=== PATIENT | female | born 1975 | race Caucasian/White ===

== ENCOUNTER 2021-01-26 12:47 | Outpatient (CLI) | payer BC, SELFPAY ==
--- NOTE | 2021-01-26 12:58 | MM_ITS ---
WS: [id number] BILATERAL DIGITAL SCREENING MAMMOGRAPHY WITH CAD CLINICAL INFORMATION: SCREENING HISTORY: Screening mammogram. No current complaints. COMPARISON: TECHNIQUE: Bilateral CC and MLO views. FINDINGS: Bilateral breast implants. Implants appear mammographically intact. Scattered fibroglandular densities bilaterally. No suspicious focal mass, asymmetry, calcifications, or architectural distortion. No evidence of malignancy. MM/[place] [id number] IMPRESSION: BI-RADS: 2-Benign FOLLOW UP: 1 Year Follow-up Recommend return to annual screening mammography.
== END 2021-01-26 12:48 | disposition home or self-care (01) ==
LOC: RADSHAW 12:52
PROVIDERS: PCP Nurse Practitioner Family; Visit Provider Nurse Practitioner Family
DX: Z12.31 Encounter for screening mammogram for malignant neoplasm of breast (principal)
CPT/HCPCS: 77067

== ENCOUNTER 2024-10-31 05:04 | Emergency (ER) | payer BC, SELFPAY ==
--- NOTE | 2024-10-31 05:08 | XRR_ITS ---
PROCEDURE INFORMATION: Exam: XR Right Ankle Exam date and time: 10/31/2024 5:21 AM Age: 48 years old Clinical indication: Injury or trauma; Fall; Blunt trauma; Ankle; Right; Additional info: Fall, pain and swelling TECHNIQUE: Imaging protocol: Radiologic exam of the right ankle. Views: 3 or more views. COMPARISON: No relevant prior studies available. FINDINGS: Bones/joints: Lateral soft tissue swelling. Slightly displaced fracture of the distal fibula. Mild calcaneal spurring. Soft tissues: Normal. XR/XR ankle RT min 3V* [id number] IMPRESSION: Fracture of the distal fibula.
[2024-10-31 05:10] VITALS: BP 108/62; PULSE 66; RESP 18; TEMP 36.2; O2SAT 94; BMI 30.4
--- NOTE | 2024-10-31 05:17 | ED_ITS ---
HPI - Trauma General: Chief Complaint: Trauma Stated Complaint: FALL, RIGHT ANKLE INJURY Time Seen by Provider: 10/31/24 05:07 History of Present Illness: 48-year-old female presents emergency ro om by ambulance with right ankle pain. She stepped in a hole in her yard. She has some swelling on the lateral malleolus. Neurovascularly intact. No obvious deformities. No other injuries. No head injury. No chest pain. No loss of consciousness. No altered mental status. No abdominal pain. No nausea or vomiting. Related Data Home Medications ?Medication ?Instructions ?Recorded ?Confirmed cetirizine 10 mg tablet (Zyrtec) 10 mg PO DAILY PRN 10/03/24 cholecalciferol (vitamin D3) 50 50 mcg PO DAILY 10/03/24 mcg (2,000 unit) capsule ferrous sulfate 325 mg (65 mg 65 mg PO DAILY 06/02/21 10/03/24 iron) tablet vitamin B complex-folic acid 0.4 1 tab PO DAILY 10/03/24 mg tablet (Super B Maxi Complex) one a day women's petite PO DAILY 08/08/21 10/03/24 multivitamin Lactobacillus cap PO DAILY 09/19/21 acidophilus-Bifidobac.animalis 2 billion cell capsule (One-A-Day Trubiotics) calcium fructoborate 216 mg tablet mg PO DAILY 2 10/03/24 (Move Free Ultra Faster Comfort) cranberry 500 mg capsule 4,200 mg PO DAILY 09/19/21 0 10/03/24 lysine 500 mg tablet 500 mg PO .Weekly 07/05/23 0 10/03/24 Previous Rx's ?Medication ?Instructions ?Recorded desvenlafaxine succinate 100 mg 200 mg (2 x 100 mg) PO DAILY #180 05/02/24 tablet,extended release 24 hr tabs (Pristiq) hydrocodone 5 mg-acetaminophen 325 1 tab PO Q6H PRN pa in #20 tabs 10/31/24 mg tablet polyethylene glycol 3350 17 17 g PO DAILY #510 grams 0 10/31/24 gram/dose oral powder (Miralax) Allergies Allergy/AdvReac Type Severity Reaction Status Date / Time acetaminophen (From Tylenol) Allergy Mild breaks me Verified 10/03/24 15:42 out in rash Review of Systems Narrative: Constitutional symptoms: Negative except as documented in HPI. Skin symptoms: Negative except as documented in HPI. Eye symptoms: Negative except as documented in HPI. ENMT symptoms: Negative except as documented in HPI. Respiratory symptoms: Negative except as documented in HPI. Cardiovascular symptoms: Negative except as documented in HPI. Gastrointestinal symptoms: Negative except as documented in HPI. Genitourinary symptoms: Negative except as documented in HPI. Musculoskeletal symptoms: Negative except as documented in HPI. Neurologic symptoms: Negative except as documented in HPI. Psychiatric symptoms: Negative except as documented in HPI. Endocrine symptoms: Negative except as documented in HPI. [facility] PFSH: Medical History (Updated 10/31/24 @ 05:34 by Kalyn Olivares MD) Psychiatric care Social History Smoking and tobacco/nicotine status: current every day tobacco/nicotine user cigarettes Packs smoked per day: 1.5 Years cigarettes smoked: 31 Quit status (tobacco/nicotine): has tried quititng Number of times tried to quit tobacco: 3 Second hand smoke exposure: Yes Physical Exam Narrative: EXAM NARRATIVE: General: Alert, no acute distress. Skin: warm and dry Head: Normocephalic Neck: Trachea midline Eye: Extraocular movements are intact. Ears, nose, mouth and throat: Oral mucosa moist Respiratory: Respirations are non-labored Musculoskeletal: Swelling over the lateral malleolus of the right ankle. Neurovascular intact. No obvious deformities. Pain with movement. Gastrointestinal: Abdomen does not appear distended Neurological: Alert and oriented, No focal neurological deficit observed. Psychiatric: Cooperative, appropriate mood & affect. Course Vital Signs: Vital signs: Vital Signs Temperature 97.2 F L 10/31/24 05:10 Pulse Rate 66 10/31/24 05:10 Respiratory Rate 18 10/31/24 05:10 Blood Pressure 108/62 10/31/24 05:10 Pulse Oximetry 94 10/31/24 05:10 [facility] - Trauma Medical Decision Making X-ray of the right ankle: Mildly displaced distal fibular fracture. This was reviewed and interpreted by myself the emergency room physician. I also reviewed the radiology report. Assessment and plan: Ankle fracture ?Crutches and splint - Discharged home - Discussed plan with patient. Answered any questions. - Evaluation and treatment of this problem were appropriate in the emergency setting. All radiology interpretation(s) finalized by discharge Discharge Plan Discharge Patient Disposition: Home Clinical Impression: Ankle fracture Condition: Stable Prescriptions: New hydrocodone-acetaminophen 5-325 mg tablet 1 tab PO Q6H PRN (Reason: pain) Qty: 20 0RF polyethylene glycol 3350 [Miralax] 17 gram/dose powder 17 g PO DAILY Qty: 510 0RF Rx Instructions: Take 1 scoop daily while taking pain medications. No Action one a day women's petite multivitamin PO DAILY ferrous sulfate 325 mg (65 mg iron) tablet 65 mg PO DAILY vitamin B complex-folic acid [Super B Maxi Complex] 0.4 mg tablet 1 tab PO DAILY cetirizine [Zyrtec] 10 mg tablet 10 mg PO DAILY PRN cholecalciferol (vitamin D3) 50 mcg (2,000 unit) capsule 50 mcg PO DAILY Move Free Ultra Faster Comfort 216 mg tablet PO DAILY cranberry 500 mg capsule 4,200 mg PO DAILY Rx Instructions: administer with meals One-A-Day Trubiotics 2 billion cell capsule PO DAILY desvenlafaxine succinate [Pristiq] 100 mg tablet extended release 24 hr 200 mg PO DAILY Qty: 180 3RF lysine 500 mg tablet 500 mg PO .Weekly Discharge Orders: Discharge ED (Routine); Ordered 10/31/24 Ordered By: Kalyn Olivares Referrals: Keith Messer DO [Physician, Orthopedics] - 4-7 days Referral Note: Please call for an appointment Enid Padilla NP [Primary Care Provider, Family Practice] Discharge Activity: Limit activity as instructed Patient Instructions: Crutch Instructions (ED), Opioid Safety, Pain Management Activity Restrictions/Additional Instructions: Thank you for choosing [facility] for your healthcare needs today. You have been screened and evaluated and felt safe for discharge. Health conditions do change or evolve sometimes and as such it is important that you follow up with your Primary Doctor to be re checked, 3-5 days is a general good time frame for follow up. You are always welcome to return to the ED for re assessment if your symptoms are worsening or you have new concerns Print Language: Citizen Of [place] Coding Level of Care Code ED Obstetrician Gynecologist for Gene Reeves
[2024-10-31 06:07] VITALS: RESP 20
[2024-10-31] MEDS: morphine 4 mg/mL SDV 1 mL IM (06:07)
[2024-10-31] MEDS: ondansetron 2 mg/ML SDV 2 mL 4 MG IM (06:08)
[2024-10-31 06:55] VITALS: BP 112/76; PULSE 65; RESP 16; O2SAT 99
== END 2024-10-31 06:56 | disposition home or self-care (01) ==
PROVIDERS: Emergency Provider Emergency Medicine; PCP Nurse Practitioner Family
DX: S82.831A Other fracture of upper and lower end of right fibula, initial encounter for closed fracture (principal); F17.210 Nicotine dependence, cigarettes, uncomplicated; X58.XXXA Exposure to other specified factors, initial encounter
CPT/HCPCS: 29505; 73610; 96372; 99284; J2270; J2405

== ENCOUNTER 2024-11-03 15:15 | Outpatient (CLI) | payer BC, SELFPAY | END 2024-11-03 15:16 | disposition home or self-care (01) | LOC: SPT 11-04 08:48 | PROVIDERS: PCP Nurse Practitioner Family; Visit Provider Podiatrist Foot & Ankle Surgery | DX: Z46.89 Encounter for fitting and adjustment of other specified devices (principal); S82.831D Other fracture of upper and lower end of right fibula, subsequent encounter for closed fracture with routine healing; X58.XXXD Exposure to other specified factors, subsequent encounter | CPT/HCPCS: L4361 ==

== ENCOUNTER → 2024-11-17 13:29 | Outpatient (BNVA) | payer BC, SELFPAY | PROVIDERS: PCP Nurse Practitioner Family; Visit Provider Podiatrist Foot & Ankle Surgery | DX: S82.831D Other fracture of upper and lower end of right fibula, subsequent encounter for closed fracture with routine healing (principal); W19.XXXD Unspecified fall, subsequent encounter | CPT/HCPCS: 73610 ==

== ENCOUNTER → 2024-12-08 14:35 | Outpatient (BNVA) | payer BC, SELFPAY | PROVIDERS: PCP Nurse Practitioner Family; Visit Provider Podiatrist Foot & Ankle Surgery | DX: S82.831G Other fracture of upper and lower end of right fibula, subsequent encounter for closed fracture with delayed healing (principal); W19.XXXD Unspecified fall, subsequent encounter | CPT/HCPCS: 73610 ==

== ENCOUNTER → 2024-12-23 07:52 | Outpatient (BNVA) | payer BC, SELFPAY | PROVIDERS: PCP Nurse Practitioner Family; Visit Provider Podiatrist Foot & Ankle Surgery | DX: S82.831G Other fracture of upper and lower end of right fibula, subsequent encounter for closed fracture with delayed healing (principal); W19.XXXD Unspecified fall, subsequent encounter | CPT/HCPCS: 73610 ==

== ENCOUNTER 2025-01-02 08:14 | Day surgery (SDC) | payer BC, SELFPAY ==
[2025-01-02] VITALS (11 sets, daily range): BP systolic 90–130; BP diastolic 41–72; PULSE 57–83; RESP 14–19; TEMP 36.2–36.3; O2SAT 93–100; BMI 33.4
--- NOTE | 2025-01-02 | XR_ITS ---
WS: [id number] Right ankle, C-arm fluoroscopy views, 01/02/2025 Clinical Data: KD PICS Comparison: Right ankle, 12/23/2024 Findings: Dr. Obrien reduce the distal right fibular fracture with an orthopedic plate and screws. XR/XR ankle RT min 3V* [id number] Impression: Internal fixation of distal right fibular fracture.
--- NOTE | 2025-01-02 09:27 | W.PM.OPSUD ---
Surgery/Procedure H&P Update DATE OF PROCEDURE: January 02, 2025 DATE H&P PERFORMED: 12/23/24 H&P UPDATE INFORMATION: I have reviewed H&P completed within last 30 days, I have examined patient prior to procedure, No changes to prior documentation and Risks and benefits of the procedure reviewed PREOP DIAGNOSIS: Right distal fibular fracture PLANNED PROCEDURE: Operation Date: 01/02/25 09:50 Proposed Procedures p ORIF Ankle ORIF Distal Fibula delayed healing, subsequent encounter(Right) - Santi Obrien DPM
--- NOTE | 2025-01-02 09:37 | PC.NURSE ---
Dr Tomlinson administered Ropivacaine 0.5% 30 mls and Decadron 4 mg into the right popliteal space. Pt tolerated well.
--- NOTE | 2025-01-02 09:43 | ANES.PREANE2 ---
Pre-Anesthetic Assessment Height/Weight: Height 1.73 m Weight 99.79 kg Temp Pulse Resp BP Pulse Ox O2 Del Method 97.3 F L 83 18 96/72 95 Room Air 01/02/25 08:32 01/02/25 08:32 01/02/25 08:32 01/02/25 08:32 01/02/25 08:32 01/02/25 08:32 Preop Diagnosis: Right distal fibular fracture Operation Date: 01/02/25 09:50 Proposed Procedures p ORIF Ankle ORIF Distal Fibula delayed healing, subsequent encounter(Right) - Santi Obrien DPM Familial anesthetic complications: None Was Beta Luis taken within 24 hours: N/A Was Clonidine taken within 24 hours: N/A Last intake: Intake Last Liquid Date 01/01/25 Last Liquid Time 22:00 Last Solid Date 01/01/25 Last Solid Time 19:00 Social No alcohol and No tobacco Exam alert, oriented x 3, clear to auscultation bilaterally and regular rate & rhythm Airway Mallampati: Class II Dentition: false Anesthetic Plan ASA status: 2 Anesthesia: General and Regional (specify below) Risk of > 500 ml blood loss (7ml/kg in children): No Medications/Allergies Home Medications ?Medication ?Instructions ?Recorded ?Confirmed ?Last Taken ?Type cetirizine 10 mg tablet (Zyrtec) 10 mg PO DAILY PRN Allergy Symptoms 06/02/21 01/01/25 01/01/25 06:00 History cholecalciferol (vitamin D3) 50 50 mcg PO DAILY 06/02/21 01/01/25 01/01/25 06:00 History mcg (2,000 unit) capsule ferrous sulfate 325 mg (65 mg 65 mg PO DAILY 06/02/21 01/01/25 01/01/25 06:00 History iron) tablet vitamin B complex-folic acid 0.4 1 tab PO DAILY 06/02/21 01/01/25 01/01/25 06:00 History mg tablet (Super B Maxi Complex) one a day women's petite 1 tab PO DAILY 08/08/21 01/01/25 01/01/25 06:00 History multivitamin Lactobacillus 1 cap PO DAILY 09/19/21 01/01/25 01/01/25 06:00 History acidophilus-Bifidobac.animalis 2 billion cell capsule (One-A-Day Trubiotics) calcium fructoborate 216 mg tablet 216 mg PO DAILY 09/19/21 01/01/25 01/01/25 06:00 History (Move Free Ultra Faster Comfort) cranberry 500 mg capsule 4,200 mg PO DAILY 09/19/21 01/01/25 01/01/25 06:00 History lysine 500 mg tablet 500 mg PO .Weekly 07/05/23 01/01/25 01/01/25 06:00 History desvenlafaxine succinate 100 mg 200 mg (2 x 100 mg) PO DAILY #180 05/02/24 01/01/25 01/01/25 06:00 Rx tablet,extended release 24 hr tabs (Pristiq) CAM walker #1 ea 11/03/24 12/23/24 01/01/25 06:00 Rx Allergies Allergy/AdvReac Type Severity Reaction Status Date / Time acetaminophen (From Tylenol) Allergy Mild breaks me Verified 01/02/25 08:31 out in [facility] Anesthesia Medical History Psychiatric care Social History Smoking and tobacco/nicotine status: current every day tobacco/nicotine user cigarettes Packs smoked per day: 1.5 Years cigarettes smoked: 31 Quit status (tobacco/nicotine): has tried quititng Number of times tried to quit tobacco: 3 Second hand smoke exposure: Yes Anesthesia Procedures Nerve Block Nerve Block 1: Main Anesthesia: general anesthesia Time Out Performed: Yes Consent: requested by attending/covering physician, from patient, from other, risks and benefits reviewed and patient agrees to proceed Nerve block location: popliteal (R) Anesthesia monitors applied: pulse oximetry, EKG and BP cuff Nerve block position: supine Anesthetic Used: ropivicaine 0.5% (30 ml) and with decadron (4 mg) Ultrasound used to: recognize landmarks Nerve Stimulator Used?: Yes Interscalene/Femoral BLK: 4 stimuplex 21 g needle used for position and inplane approach, visualize local anesthetic spread and no vascular puncture identified Injection: neg aspiration of heme Patient Tolerated Procedure: well Complications: none
[2025-01-02] MEDS: ceFAZolin 2,000 mg SDV 2000 MG IVP (09:53)
[2025-01-02] MEDS: tranexamic acid 1,000 mg/10mL SDV 1000 MG IV (10:00)
--- NOTE | 2025-01-02 10:43 | P.OP_ITS ---
Operative Report Date of procedure: January 02, 2025 Pre-op diagnosis: closed fracture of distal end of right fibula with delayed healing, subsequent encounter S82.831G Post-op diagnosis: closed fracture of distal end of right fibula with delayed healing, subsequent encounter S82.831G Procedure done: Open reduction internal fixation right distal fibula. CPT code 70719 Implants: 3.0 mm headless interfrag screw Lawrence 28, 22 mm in length 3.5 mm locking screws x 8, Lawrence Anatomic fibular plate 5 Lawrence 28 Beast demineralized bone matrix Lawrence 28 2-0 Vicryl, 3-0 Vicryl, skin grover Specimens removed/disposition: None Pathology: None Surgeon: Santi Obrien DPM Wash Tub Machine Operator: Dennis Barrios Estimated blood loss: 1 mL 31 minutes IV fluids: See intraoperative report Urine output: None Complications: None Brief History: Delayed healing right distal fibular fracture appreciated x-ray at today's visit AP oblique and lateral view consistent with Josiah De La Cruz B is 6 weeks out without appreciable healing on x-ray patient would like to proceed with ORIF for this reason. I reviewed at length with the patient, the risks, potential complications, benefits, alternatives, expectations, and typical outcomes associated with the surgery. The risks and potential complications were explained in detail, including but not limited to infection, wound dehiscence or soft tissue complications, bleeding and hematoma, chronic edema, neuritis or nerve damage producing numbness or chronic pain, CRPS, failure to relieve pain or worsening pain, thick / painful / unsightly scar, limited motion / stiffness, malposition, delayed union, malunion, or nonunion, fracture, reaction to implants, anesthetic complications, venous thromboembolism, and deformity recurrence. I discussed the notion of no regrets with the patient as it pertains to complications and outcomes. The patient seemed to understand the nature of the proposed care and required convalescence. They asked appropriate questions, answered to their satisfaction. They are aware no guarantees can be made as to a satisfactory outcome and they understand there may be other possible unforeseen complications or outcomes not listed here that will be treated accordingly if they arise. There were no written or implied guarantees given to the patient. They gave informed consent to proceed. Procedure: Under mild sedation the patient was brought to the operating room and remained on the gurney in supine position. A timeout was performed. Anesthesia was then administered by the anesthesia service. Of note right popliteal block was performed preoperatively per anesthesia service. Well-padded pneumatic tourniquet applied of the right high calf. Right lower extremity was scrubbed, prepped and draped utilizing normal aseptic technique. Right foot and ankle were exanguinated with an Esmarch bandage and tourniquet inflated to 250 mmHg. Attention was directed to the right lateral ankle where bony landmarks were palpated including right distal fibula. Directly over the distal fibula a linear longitudinal incision was made with a #15 blade through skin with dissection carried down through subcutaneous tissues to the layer periosteum utilizing a combination of sharp and blunt technique. Care was taken to retract and preserve neurovascular and tendinous structures. All bleeders were ligated and cauterized as necessary. Periosteal incision was made an oblique Sy De La Cruz B fracture was appreciated of the distal fibula this was curettaged of fibrous nonunion and hematoma down to healthy bone followed by saline flush. The distal fibula was reduced into anatomic position in all 3 planes this was pulled out the length and derotated and fixated utilizing standard AO technique with a headless 3 mm cannulated screw with excellent bony apposition and compression noted. Anatomic fibular plate utilized to further fixate the distal fibula with 3.5 mm locking screws with excellent bony apposition and compression noted not violating the ankle mortise confirmed with AP oblique and lateral views with intraoperative C arm. Right ankle joint range of motion was smooth without crepitus with 10 degrees of dorsiflexion and 40 degrees of plantarflexion. The incision was irrigated with saline solution and closed in a layered fashion. Periosteum was reapproximated with 2-0 Vicryl, subcutaneous tissue with 3-0 Vicryl and skin with grover. The incision was then dressed with Xeroform, sterile 4 x 4 gauze, Kerlix and Aj wrap followed by application of a cam boot to the right lower extremity. Tourniquet was then deflated and a prompt hyperemic response is noted to the distal digits of the right foot. Patient tolerated the procedure and anesthesia well and was transferred to the PACU with vital signs stable and vascular status intact. Following a period of postoperative monitoring she will be discharged home without home care instructions and scheduled follow-up.
--- NOTE | 2025-01-02 10:43 | W.PM.BPON ---
Date of Procedure: 08/31/23 Surgeon: Santi Obrien DPM Clinical Reimbursement Specialist(s): Meme Procedure(s) performed: Open reduction internal fixation right distal fibula Findings of the procedure(s): Right distal fibular fracture Estimated blood loss: 1 mL Specimen(s) removed: No specimens Post-operative diagnosis: Right distal fibular fracture
--- NOTE | 2025-01-02 11:50 | ANE.PACU2 ---
Inpatient post-anesthesia follow up: Airway intact: Yes Vital signs: Temperature 97.2 F Pulse Rate 68 Respiratory Rate 18 Blood Pressure 127/70 Pulse Oximetry 97 Oxygen Delivery Me thod Room Air Oxygen Flow Rate 10 Fraction of Inspir ed Oxygen Hydration adequate: Yes Nausea and vomiting: No Pain level: 1 Mental status: Baseline
== END 2025-01-02 11:52 | disposition home or self-care (01) ==
PROVIDERS: PCP Nurse Practitioner Family; Visit Provider Podiatrist Foot & Ankle Surgery
PROC: (CPT 27792; principal; 2025-01-02 09:40)
DX: S82.831D Other fracture of upper and lower end of right fibula, subsequent encounter for closed fracture with routine healing (principal); W19.XXXD Unspecified fall, subsequent encounter; F17.210 Nicotine dependence, cigarettes, uncomplicated
CPT/HCPCS: 27792; 73610; 76000; C1713; C1762; J0690; J1100; J2250; J2405; J2704; J2795; J3010; J7030; J9999

== ENCOUNTER → 2025-01-15 14:38 | Outpatient (BNVA) | payer BC, SELFPAY | PROVIDERS: PCP Nurse Practitioner Family; Visit Provider Podiatrist Foot & Ankle Surgery | DX: Z98.890 Other specified postprocedural states (principal) | CPT/HCPCS: 73610 ==

== ENCOUNTER → 2025-02-12 09:55 | Outpatient (BNVA) | payer BC, SELFPAY | PROVIDERS: PCP Nurse Practitioner Family; Visit Provider Podiatrist Foot & Ankle Surgery | DX: Z98.890 Other specified postprocedural states (principal); S82.831G Other fracture of upper and lower end of right fibula, subsequent encounter for closed fracture with delayed healing; X58.XXXD Exposure to other specified factors, subsequent encounter | CPT/HCPCS: 73610 ==

== ENCOUNTER → 2025-03-12 12:47 | Outpatient (BNVA) | payer BC, SELFPAY | PROVIDERS: PCP Nurse Practitioner Family; Visit Provider Podiatrist Foot & Ankle Surgery | DX: S82.831G Other fracture of upper and lower end of right fibula, subsequent encounter for closed fracture with delayed healing (principal); X58.XXXD Exposure to other specified factors, subsequent encounter; Z98.890 Other specified postprocedural states | CPT/HCPCS: 73610 ==